=== PATIENT | female | born 1995 | race Caucasian/White ===

== ENCOUNTER 2016-10-21 21:40 | Emergency (ER) | payer SELFPAY ==
[2016-10-21] MEDS ORDERED: NS 0.9% 1000 ML* 1,000 ML IV ONE (23:22)
--- NOTE | 2016-10-21 23:38 | ED ---
raquel Bryant Timothy, scribed for Cr Hanley MD on 10/21/16 at 2321 . GI/ HPI - HPI Summary HPI Summary: Briana Ivory is a 21 yo female presenting to [facility] with diarrhea for the past 5 months, 7x today, accompanied by nausea. She states the diarrhea has been happening since approximately the time of her miscarriage. She notes that she took unprescribed ABx 2-3 weeks ago, and she believes that this may have made things worse. She notes stool incontinence this morning. she also notes occasional abdominal pain without a pattern. She denies any current pain. She denies any PMHx, but has had a miscarriage, and thinks she has a hemorrhoid. - History of Current Complaint Chief Complaint: EDAbdPain Time Seen by Provider: 10/21/16 23:16 Stated Complaint: DIARRHEA Hx Obtained From: Patient Onset/Duration: Started Weeks Ago, Still Present Timing: Intermittent Severity: Moderate Current Severity: Moderate Pain Intensity: 0 Location of Pain: Diffuse Associated Signs and Symptoms: Positive: Nausea, Diarrhea, Abdominal Pain - intermittent, random - Allergy/Home Medications Allergies/Adverse Reactions: Allergies Allergy/AdvReac Type Severity Reaction Status Date / Time Penicillins Allergy Unknown Verified 10/21/16 21:43 Reaction Details PMH/Surg Hx/FS Hx/Imm Hx Infectious Disease History: Denies: Traveled Outside the [place] in Last 30 Days - Family History Known Family History: Positive: Cardiac Disease, Hypertension, Diabetes - Social History Lives: With Family Alcohol Use: Rare Hx Substance Use: No Substance Use Type: Reports: None Hx Tobacco Use: No Smoking Status (MU): Never Smoked Tobacco - Additional Comments History Additional Comments: miscarriage, possible hemorrhoid Review of Systems Constitutional: Negative Eyes: Negative ENT: Negative Cardiovascular: Negative Respiratory: Negative Positive: Abdominal Pain, Diarrhea, Nausea Genitourinary: Negative Musculoskeletal: Negative Skin: Negative Neurological: Negative Psychological: Normal All Other Systems Reviewed And Are Negative: Yes Physical Exam Triage Information Reviewed: Yes Vital Signs On Initial Exam: Initial Vitals Temp Pulse Resp BP Pulse Ox 98 F 83 16 113/71 100 10/21/16 21:43 10/21/16 21:43 10/21/16 21:43 10/21/16 21:43 10/21/16 21:43 Vital Signs Reviewed: Yes Appearance: Positive: No Pain Distress, Thin Skin: Positive: Warm Head/Face: Positive: Normal Head/Face Inspection Eyes: Positive: ALEXANDER ENT: Positive: Hearing grossly normal Neck: Positive: Supple, Nontender Respiratory/Lung Sounds: Positive: Clear to Auscultation, Breath Sounds Present Cardiovascular: Positive: RRR Abdomen Description: Positive: Nontender, No Organomegaly, Soft. Negative: Distended, Guarding Bowel Sounds: Positive: Present Neurological: Positive: Alert, Oriented to Person Place, Time Psychiatric: Positive: Affect/Mood Appropriate Diagnostics - Vital Signs Vital Signs Temp Pulse Resp BP Pulse Ox 10/21/16 21:43 98 F 83 16 113/71 100 - Laboratory Result Diagrams: 10/21/16 23:32 10/21/16 23:32 Lab Statement: Any lab studies that have been ordered have been reviewed, and results considered in the medical decision making process. Re-Evaluation - Re-Evaluation First Eval Change: Improved - no diarrhea while in ed, results d/w pt GIGU Course/Dx - Course Assessment/Plan: Briana Ivory is a 21 yo female presenting to [facility] with diarrhea 7x a day for the past 5 months, accompanied by nausea. Pt medication list reviewed this visit. In the ED course she received IV fluids. After clinical examination and review of her lab studies, she will be discharged home with diarrhea with appropriate instructions. - Diagnoses Differential Diagnoses - Female: Diarrhea Provider Diagnoses: Diarrhea Discharge - Discharge Plan Condition: Stable Disposition: HOME Patient Education Materials: Acute Diarrhea (ED) Referrals: Amy Cano MD [Primary Care Provider] - 2 Days Ismael Mooney MD [Medical Doctor] - 2 Days Additional Instructions: Please follow up with your primary care physician and Dr. Mooney (GI) regarding your visit to the emergency department today. Return to the emergency department with any new or recurring symptoms. The documentation as recorded by the raquel wu Timothy accurately reflects the service I personally performed and the decisions made by me, Cr Hanley MD.
[2016-10-21 23:49] LABS: Hematocrit 43 % (35-47); Hemoglobin 14.2 g/dl (12.0-16.0); Mean Corpuscular HGB Conc 33 g/dl (31-36); Mean Corpuscular Hemoglobin 31 pg (27-31); Mean Corpuscular Volume 92 fL (80-97); Mean Platelet Volume 10 um3 (7.4-10.4); Red Blood Count 4.65 10^6/ul (4.0-5.4); Red Cell Distribution Width 14 % (10.5-15); White Blood Count 11.1 10^3/ul (3.5-10.8)
[2016-10-22 00:10] LABS: ALT 12 U/L (7-52); AST 13 U/L (13-39); Albumin 4.3 g/dL (3.2-5.2); Alkaline Phosphatase 43 U/L (34-104); Anion Gap 7 mmol/L (2-11); BUN/Creatinine Ratio 12.1 (8-20); Blood Urea Nitrogen 7 mg/dL (6-24); C Reactive Protein < 1.00 mg/L (< 5.00); CO2 Carbon Dioxide 25 mmol/L (22-32); Calcium 9.8 mg/dL (8.6-10.3); Chloride 107 mmol/L (101-111); EGFR African American 168.8 (>60); EGFR Non-African American 131.2 (>60); Globulin 2.6 g/dL (2-4); Glucose 87 mg/dL (70-100); Lipase < 10 U/L (11.0-82.0); Potassium 3.6 mmol/L (3.5-5.0); Sodium 139 mmol/L (133-145); Total Protein 6.9 g/dL (6.4-8.9)
[2016-10-22 00:32] LABS: Urine Bilirubin Negative (Negative); Urine Glucose Negative (Negative); Urine Nitrite Negative (Negative)
[2016-10-22 01:03] LABS: Urine Bacteria 1+ (Absent)
[2016-10-22 02:06] VITALS: BP 108/62
== END 2016-10-22 02:21 | disposition home or self-care (01) ==
LOC: ED 21:40
DX: R19.7 Diarrhea, unspecified (principal); R11.0 Nausea; R10.9 Unspecified abdominal pain; Z32.02 Encounter for pregnancy test, result negative; Z88.0 Allergy status to penicillin
CPT/HCPCS: 36415; 80053; 81003; 81015; 82272; 83605; 83690; 83735; 84702; 85025; 86140; 87086; 96361; 99283